=== PATIENT | female | born 1955 | race Caucasian/White ===

== ENCOUNTER 2019-01-24 22:15 | Emergency (ER) | payer OTHER ==
[~2019-01-24] VITALS: Ht 160 cm; Wt 81.6 kg
[2019-01-24 22:15] VITALS: BP 136/73
[~2019-01-24 22:15] MED LIST: ASPI-484 PO; ASPI-667 PO; CLOP75TA52 PO; DOCU-123 PO; DOXY25TA42 PO; INSU100V11 SQ; LISI-410 PO; METO25TA4 PO; METO50TA6 PO; NITR0.4T26 SL; OMEG300C PO; OMEG500C3 PO; SIMV40TA20 PO; TRAM50TA PO
--- NOTE | 2019-01-24 22:15 | NUR ---
ARRIVAL PATIENT PRESENTS VIA AMBULANCE WITH COMPLAINTS OF GENERALIZED BODY ACHES, BILATERAL SHOULDER PAIN, SOB WHEN LYING DOWN AND DIARRHEA FOR THE PAST 2 DAYS. PATIENT ALSO REPORTS THAT SHE THINKS SHE HAS A UTI AND IS DEHYDRATED. PATIENT HAS A GOODSON CATHETER IN PLACE THAT SHE HAD REPLACED ONE WEEK AGO. REPORTS SHE WAS RECENTLY DISCHARGED FROM THE INTERMEDIATE 01/10/19. EMS REPORT BS 456MG/DL. NO SIGNS OF DISTRESS NOTED. VSS. ZULEYKA MD NOTIFIED.
--- NOTE | 2019-01-24 22:50 | ER.PDOC ---
General Chief Complaint: Requesting Medical Care Stated Complaint: GENERALIZED PAIN,HYPERGLYCEMIA TRAVEL OUT OF US: No Time seen by MD: 22:50 Source: patient, family, EMS Exam Limitations: no limitations History of Present Illness Initial Comments 63 Y/O F WITH HX TO ED VIA EMS WITH MULTIPLE COMPLAINTS, BLOOD SUGAR UP, POSS UTI WITH CHRONIC GOODSON THAT WAS CHANGED OUT X 1 WEEK, UPPER BILAT SHOULDER PAIN WITH DEEP BREATH-- NOT LIKE PAST HEART PAIN AND DIARRHEA X 2 DAYS. NO CHEST PAIN, NO FEVER, NO AND PAIN, NO N/V, NO BLOOD IN STOOLS, NO COUGH, STATES FEELS DEHYDRATED, NO OTHER COMPLAINTS. PATIENT REQUESTS TORADOL--CAN TAKE, DOES NOT HAVE AN ALLERGY TO IBP. Timing/Duration: 24 hours Severity: moderate Associated Symptoms: weakness Allergies: Coded Allergies: codeine (Verified Allergy, Unknown, 10/18/15) ibuprofen (Verified Allergy, Unknown, 02/20/16) morphine (Verified Allergy, Unknown, 10/18/15) naproxen (Verified Allergy, Unknown, 10/18/15) Home Meds Active Scripts Nitroglycerin (NITROGLYCERIN) 0.4 Mg Tab.subl, 0.4 MG SL DAILY PRN for CHEST PAIN, #30 Prov:INDIA SOLIZ MD 11/12/15 Metoprolol Tartrate 25MG (LOPRESSER 25MG) 25 Mg Tablet, 50 MG PO DAILY for BLOOD PRESSURE, #30 TAB 4 Refills Prov:INDIA SOLIZ MD 11/12/15 Clopidogrel Bisulfate (PLAVIX) 75 Mg Tablet, 1 TAB PO DAILY, #30 TAB 4 Refills Prov:INDIA SOLIZ MD 11/12/15 Aspirin (ASPIR 81) 81 Mg Tablet.dr, 162 MG PO DAILY, #60 4 Refills Prov:INDIA SOLIZ MD 11/12/15 Metoprolol Tartrate 25MG (LOPRESSER 25MG) 25 Mg Tablet, 50 MG PO BID for HYPERTENSION, #60 TAB 4 Refills Prov:INDIA SOLIZ MD 10/22/15 Clopidogrel Bisulfate (PLAVIX) 75 Mg Tablet, 1 TAB PO DAILY, #30 TAB 4 Refills Prov:INDIA SOLIZ MD 10/22/15 Reported Medications Tramadol Hcl (TRAMADOL HCL) 50 Mg Tablet, 1 TAB PO TID for PAIN for 5 Days, TAB 02/21/16 Doxylamine Succinate (SLEEP AID) 25 Mg Tablet, 25 MG PO HS for INSOMNIA, TABLET 11/09/15 Aspirin (ASPIRIN) 81 Mg Tab.chew, 2 TAB PO DAILY, #30 TAB 11/09/15 Simvastatin (SIMVASTATIN) 40 Mg Tablet, 1 TAB PO HS, #90 TAB 1 Refill 11/09/15 [place]-3 Fatty Acids (FISH OIL) 300 Mg Capsule, 300 MG PO BID, CAPSULE 11/09/15 Docusate Sodium (COLACE) 100 Mg Capsule, 200 MG PO PRN PRN for CONSTIPATION, CAPSULE 11/09/15 [place]-3 Fatty Acids (FISH OIL) 500 Mg Capsule, 500 MG PO BID, CAPSULE 11/09/15 Lisinopril (LISINOPRIL) 20 Mg Tablet, 25 MG PO DAILY, TABLET 10/19/15 Simvastatin (SIMVASTATIN) 40 Mg Tablet, 1 TAB PO HS, #30 TAB 5 Refills 10/19/15 Insulin Regular, Human (NOVOLIN R) 100 Unit/1 Ml Vial, 10 UNITS SQ TID INJECT THE NUMBER OF UNITS OF INSULIN SPECIFIED BY PROVIDER 10/19/15 Past Medical History Medical History: coronary artery disease, cardiac problems, diabetes, high cholesterol, vascular disease Surgical History: cardiac cath, angioplasty, cholecystectomy, coronary bypass surgery, tubal, other Family History Significant Family History: no pertinent family hx Social History Smoking: non-smoker Alcohol Use: none Drug Use: none Reviewed Nursing Reviewed: Vital Signs, Abn. Noted, Nursing Assessment Review of Systems Constitutional: chills, malaise EENTM: no symptoms reported Respiratory: no symptoms reported Cardiovascular: no symptoms reported Gastrointestinal: diarrhea, other Genitourinary: no symptoms reported, other Musculoskeletal: no symptoms reported Skin: no symptoms reported Psychiatric/Neurological: no symptoms reported Hematologic/Lymphatic: no symptoms reported Immunological/Allergic: no symptoms reported Physical Exam General Appearance: No Apparent Distress, WD/WN EENT: eyes nml inspection, nml ENT inspection, pharynx nml Neck: Non-Tender, Full Range of Motion, Supple, Normal Inspection Respiratory: chest non-tender, lungs clear, normal breath sounds, no respiratory distress CVS: reg rate & rhythm, no murmur, no gallop, pulses nml, nml capillary refill Gastrointestinal: Normal Bowel Sounds, No Organomegaly, No Pulsatile Mass, Non Tender Back: Normal Inspection, No CVA Tenderness Extremities: Normal Range of Motion, Non-Tender, Other 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 GOODSON IN [place]. ABD --NON TENDER. Results/Orders Results/Orders Orders - DOMINGO GARDINER DO Cbc With Auto Diff (01/24/19 22:51) Comprehensive Metabolic Panel (01/24/19 22:51) Urinalysis (01/24/19 22:51) Creatine Kinase Mb (01/24/19:51) Creatine Kinase (01/24/19:51) Troponin I (01/24/19:51) Xr Chest 2v (01/24/19 22:51) Ekg-Routine (01/24/19 22:51) Lipase (01/24/19 22:51) 0.9 % Sodium Chloride (Ns 1000ml) (01/24/19 22:51) Saline Lock (01/24/19 22:51) 0.9 % Sodium Chloride (Ns 1000ml) (01/24/19 23:20) Insulin Regular, Human (Humulin R) (01/25/19 00:00) Urine Culture (01/24/19 23:25) Insulin Regular, Human (Humulin R) (01/24/19 23:45) Ceftriaxone Sodium (Rocephin) (01/25/19 00:00) 0.9 % Sodium Chloride (Ns 100ml) (01/24/19 23:52) Ceftriaxone Sodium (Rocephin) (01/24/19 23:52) Place Goodson Catheter (01/24/19 23:57) Ketorolac Tromethamine (Toradol) (01/25/19 00:00) Ketorolac Tromethamine (Toradol) (01/25/19 00:06) 0.9 % Sodium Chloride (Ns 1000ml) (01/25/19 00:23) 0.9 % Sodium Chloride (Ns 1000ml) (01/25/19 00:25) Blood Glucose Assessment (01/25/19 00:33) Vital Signs Date Time Temp Pulse Resp B/P (MAP) Pulse Ox O2 Delivery O2 Flow Rate FiO2 01/24/19 22:15 97.8 82 18 01/24/19 22:15 97.8 82 18 136/73 (94) 99 Room Air 01/24/19 22:15 97.8 82 18 99 Room Air Administered Medications Medications (Trade) Dose Ordered Sig/Yovanny Route PRN Reason Start Time Stop Time Status Last Admin Dose Admin Ceftriaxone Sodium 1 gm/ Sodium Chloride 100 ml @ 100 mls/hr STAT IV 01/25/19 00:00 02/24/19 00:00 01/24/19 23:59 100 MLS/HR Insulin Human Regular (Humulin R) 10 unit OT ONCE SQ 01/25/19 00:00 01/25/19 00:01 DC 01/24/19 23:59 10 UNIT Ketorolac Tromethamine (Toradol) 30 mg STAT PRN IV PAIN 4 - 6 01/25/19 00:00 02/24/19 00:00 01/25/19 00:21 30 MG Sodium Chloride 1,000 ml @ 0 mls/hr Q0M STAT IV 01/24/19 22:51 01/24/19 22:56 DC 01/24/19 23:24 1,000 MLS/HR Sodium Chloride 1,000 ml @ 0 mls/hr Q0M STAT IV 01/25/19 00:23 01/25/19 00:25 DC 01/25/19 00:29 1,000 MLS/HR Laboratory Tests Test 01/24/19 23:05 01/24/19 23:25 White Blood Count 8.3 10^3/uL (4.5-11.0) Red Blood Count 4.47 10^6/uL (4.00-5.20) Hemoglobin 12.8 g/dL (12.0-15.0) Hematocrit 36.8 % (36.0-46.0) Mean Corpuscular Volume 82.3 fL (78-100) Mean Corpuscular Hemoglobin 28.6 pg (26-34) Mean Corpuscular Hemoglobin Concent 34.8 g/dL (33-37) Red Cell Distribution Width 12.8 % (11.5-14.5) Platelet Count 252 10^3/uL (150-400) Mean Platelet Volume 9.4 fL (7.8-11.0) Neutrophils (%) (Auto) 46.9 % (41.0-85.0) Lymphocytes (%) (Auto) 42.4 % (24.0-44.0) Monocytes (%) (Auto) 7.8 % (5.0-12.0) Neutrophils # (Auto) 3.9 10^3/uL (1.8-7.7) Lymphocytes # (Auto) 3.5 10^3/uL (1.0-4.8) Monocytes # (Auto) 0.7 10^3/uL (0.3-0.8) Absolute Immature Granulocyte (auto 0.02 10^3 u/L (0-2) Immature Granulocytes % 0.20 % (0.00-0.50) Eosinophils % 2.2 % (0.0-5.0) Basophils % 0.5 % (0.0-0.2) H Basophils # 0.0 10^3/uL (0.0-0.1) Eosinophil Count 0.2 10^3/uL (0.0-0.2) Sodium Level 133 mmol/L (132-145) Potassium Level 3.9 mmol/L (3.6-5.2) Chloride Level 99.0 mmol/L (96-109) Carbon Dioxide Level 20.1 mmol/L (20.0-32) Anion Gap 17.8 Blood Urea Nitrogen 19 mg/dL (7-18) H Creatinine 1.19 mg/dL (0.59-1.40) Estimated GFR () 55.6 (>/=60) BUN/Creatinine Ratio 15.0 Glucose Level 428 mg/dL (70-110) *H Calcium Level 9.1 mg/dL (8.4-10.5) Total Bilirubin 0.6 mg/dL (0.2-1.0) Aspartate Amino Transferase (AST) 11 U/L (0-35) Alanine Aminotransferase (ALT) 20 U/L (12-78) Alkaline Phosphatase 108 U/L (50-136) Total Creatine Kinase 79 U/L (26-192) Creatine Kinase MB 1.5 ng/mL (0.5-3.6) Troponin I < 0.02 ng/mL (0.00-0.05) Total Protein 6.7 g/dL (6.4-8.2) Albumin 3.0 g/dL (3.4-5.0) L Globulin 3.7 Lipase 102 U/L (114-286) L Urine Collection Type VOID Urine Color YELLOW (YELLOW) Urine Appearance CLOUDY (CLEAR) H Urine Bilirubin NEGATIVE MG/DL (NEGATIVE) Urine Ketones NEGATIVE (NEGATIVE) Urine Specific [place] 1.010 (1.005-1.035) Urine pH 6 (5.0-6.0) Urine Protein 15 mg/dL (NEGATIVE) H Urine Urobilinogen NORMAL (NEGATIVE) Urine Nitrate NEGATIVE (NEGATIVE) Urine Leukocyte Esterase 100/ul 1+ (NEGATIVE) Urine Blood 150 3+ (NEGATIVE) H Urine RBC 10-25 RBC/HPF (NONE SEEN) H Urine WBC TNTC WBC/HPF (0-2) H Urine Squamous Epithelial Cells MANY #/HPF (FEW) Urine Bacteria FEW (NONE SEEN) H Urine Yeast MANY Urine Glucose 1000 (NEGATIVE) H Progress Progress AT 0000 FEELS MUCH BETTER, NO DIARRHEA SINCE THIS AM, NO ABD PAIN UNLESS PALP LOWER MID ABD, NO RLQ PAIN, PATIENT HAS NO OTHER COMPLAINTS. DIFF DX IN DETAIL, NEED TO DRINK MORE WATER, FOLLOW DIABETES MORE CLOSELY, AND FOLLOW UP WITH YOUR DR. PATIENT WANTS TO GO HOME. WILL REPLACE GOODSON. 0045- WANTS TO GO HOME, NO COMPLAINTS, WILL CHECK ANOTHER BLOOD GLUCOSE. EKG/XRAY/CT/US EKG: NSR EKG Comments: EKG--RATE--74, NO ACUTE CHANGES. XRAY: chest XRAY Comments: CHEST X-RAY---NEG STUDY. Course Duration or Total Time Spent w: 60 mins Vitals & review Data Vital Sign - Last 24 Hours 01/24/19 01/24/19 01/24/19 22:15 22:15 22:15 Temp 97.8 97.8 97.8 Pulse 82 82 82 Resp 18 18 18 B/P (MAP) 136/73 (94) Pulse Ox 99 99 O2 Delivery Room Air Room Air Laboratory Tests Test 01/24/19 23:05 01/24/19 23:25 White Blood Count 8.3 10^3/uL Red Blood Count 4.47 10^6/uL Hemoglobin 12.8 g/dL Hematocrit 36.8 % Mean Corpuscular Volume 82.3 fL Mean Corpuscular Hemoglobin 28.6 pg Mean Corpuscular Hemoglobin Concent 34.8 g/dL Red Cell Distribution Width 12.8 % Platelet Count 252 10^3/uL Mean Platelet Volume 9.4 fL Neutrophils (%) (Auto) 46.9 % Lymphocytes (%) (Auto) 42.4 % Monocytes (%) (Auto) 7.8 % Neutrophils # (Auto) 3.9 10^3/uL Lymphocytes # (Auto) 3.5 10^3/uL Monocytes # (Auto) 0.7 10^3/uL Absolute Immature Granulocyte (auto 0.02 10^3 u/L Immature Granulocytes % 0.20 % Eosinophils % 2.2 % Basophils % 0.5 % Basophils # 0.0 10^3/uL Eosinophil Count 0.2 10^3/uL Sodium Level 133 mmol/L Potassium Level 3.9 mmol/L Chloride Level 99.0 mmol/L Carbon Dioxide Level 20.1 mmol/L Anion Gap 17.8 Blood Urea Nitrogen 19 mg/dL Creatinine 1.19 mg/dL Estimated GFR () 55.6 BUN/Creatinine Ratio 15.0 Glucose Level 428 mg/dL Calcium Level 9.1 mg/dL Total Bilirubin 0.6 mg/dL Aspartate Amino Transf (AST/SGOT) 11 U/L Alanine Aminotransferase (ALT/SGPT) 20 U/L Alkaline Phosphatase 108 U/L Total Creatine Kinase 79 U/L Creatine Kinase MB 1.5 ng/mL Troponin I < 0.02 ng/mL Total Protein 6.7 g/dL Albumin 3.0 g/dL Globulin 3.7 Lipase 102 U/L Urine Collection Type VOID Urine Color YELLOW Urine Appearance CLOUDY Urine Bilirubin NEGATIVE MG/DL Urine Ketones NEGATIVE Urine Specific [place] 1.010 Urine pH 6 Urine Protein 15 mg/dL Urine Urobilinogen NORMAL Urine Nitrate NEGATIVE Urine Leukocyte Esterase 100/ul 1+ Urine Blood 150 3+ Urine RBC 10-25 RBC/HPF Urine WBC TNTC WBC/HPF Urine Squamous Epithelial Cells MANY #/HPF Urine Bacteria FEW Urine Yeast MANY Urine Glucose 1000 Current Medications Medications (Trade) Dose Ordered Sig/Yovanny PRN Reason Start Time Stop Time Status Last Admin Ceftriaxone Sodium 1 gm/ Sodium Chloride 100 ml @ 100 mls/hr STAT 01/25/19 00:00 02/24/19 00:00 01/24/19 23:59 Ketorolac Tromethamine (Toradol) 30 mg STAT PRN PAIN 4 - 6 01/25/19 00:00 02/24/19 00:00 01/25/19 00:21 Current Medications Medications (Trade) Dose Ordered Sig/Yovanny PRN Reason Start Time Stop Time Status Last Admin Ceftriaxone Sodium 1 gm/ Sodium Chloride 100 ml @ 100 mls/hr STAT 01/25/19 00:00 02/24/19 00:00 Sepsis Infection Criteria Pres: None Departure Time of Disposition: 00:42 Disposition: 01 HOME, SELF-CARE Impression: Primary Impression: Diabetes mellitus Additional Impressions: UTI (urinary tract infection) Dehydration Condition: Stable Patient Instructions: Diabetes Meal Planning Guide, Indwelling Urinary Catheter Care-Brief, - Urinary Tract Infection Referrals: NEGRITO GOODEN (PCP) PRIMARY CARE PROVIDER Additional Instructions: TO ED IF WORSE OR NO BETTER, DRINK MORE WATER, FOLLOW BLOOD SUGARS MORE CLOSELY, FOLLOW UP WITH YOUR DR AND FOLLOW UP WITH URINE CULTURE RESULTS. RX CIPRO 500MG 1 BID X 10 DAYS. Duration or Time Spent with Pa: 25 MIN Problem Qualifiers DOMINGO GARDINER DO Jan 24, 2019 22:50
[2019-01-24] MEDS ORDERED: NS 1000ML 1,000 ML IV STA (22:51)
[2019-01-24 23:00] VITALS: BP 134/67
--- NOTE | 2019-01-24 23:02 | PCM.EKG ---
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
[2019-01-24 23:12] LABS: BASOPHIL % 0.5 % (0.0-0.2); EOSINOPHIL # 0.2 10^3/uL (0.0-0.2); EOSINOPHIL % 2.2 % (0.0-5.0); HEMOGLOBIN 12.8 g/dL (12.0-15.0); LYMPHOCYTES # 3.5 10^3/uL (1.0-4.8); LYMPHOCYTES % 42.4 % (24.0-44.0); MEAN CELL HGB 28.6 pg (26-34); MEAN CELL HGB CONCENTRATION 34.8 g/dL (33-37); MEAN CORP VOLUME 82.3 fL (78-100); MEAN PLATELET VOLUME 9.4 fL (7.8-11.0); MONOCYTES # 0.7 10^3/uL (0.3-0.8); MONOCYTES % 7.8 % (5.0-12.0); NEUTROPHIL # 3.9 10^3/uL (1.8-7.7); NEUTROPHILS % 46.9 % (41.0-85.0); RED CELL DISTRIBUTION WIDTH 12.8 % (11.5-14.5); WHITE BLOOD CELL 8.3 10^3/uL (4.5-11.0)
[2019-01-24] MEDS ORDERED: NS 1000ML 1,000 ML ONE (23:20)
[2019-01-24 23:32] LABS: BILIRUBIN,URINE NEGATIVE (NEGATIVE); UROBILINOGEN,URINE NORMAL (NEGATIVE)
[2019-01-24 23:34] LABS: ALANINE AMINOTRANSFERASE(ML) 20 U/L (12-78); ALKALINE PHOSPHATASE 108 U/L (50-136); ASPARTATE AMINO TRANSFERASE 11 U/L (0-35); CALCIUM 9.1 mg/dL (8.4-10.5); CARBON DIOXIDE 20.1 mmol/L (20.0-32)
[2019-01-24 23:40] LABS: GLUCOSE 428 mg/dL (70-110)
[2019-01-24 23:41] LABS: APPEARANCE,URINE CLOUDY (CLEAR); UA COLOR YELLOW (YELLOW); YEAST,URINE MANY
[2019-01-24] MEDS ORDERED: HUMULIN R ONE (23:45)
[2019-01-24] MEDS ORDERED: NS 100ML 100 ML IV ONE (23:52)
[2019-01-24] MEDS ORDERED: ROCEPHIN ONE (23:52)
[2019-01-25] VITALS: BP 136/66
[2019-01-25] MEDS ORDERED: HUMULIN R SQ ONE
[2019-01-25] MEDS ORDERED: ROCEPHIN 1 GM in NS 100ML 100 ML IV SCH ×2
[2019-01-25] MEDS ORDERED: TORADOL IV PRN
[2019-01-25] MEDS ORDERED: TORADOL ONE (00:06)
--- NOTE | 2019-01-25 00:06 | DIREP ---
PROCEDURE:CHEST 2 VIEWS COMPARISON:[facility], CR, XRAY CHEST 2 VWS, 02/14/2016, 02:08 PM. INDICATIONS:UPPER BILAT SHOULDER PAIN WITH DEEP BREATH FINDINGS: LUNGS/PLEURA:Slightly decreased lung volumes. Mild crowding of the bronchovascular structures. No focal consolidation. No pneumothorax or pleural effusion. VASCULATURE:Normal. Unremarkable pulmonary vasculature. CARDIAC:Normal heart size. Post CABG changes with median sternotomy wires. MEDIASTINUM:Normal. No visible mass or adenopathy. BONES:Mild degenerative disc disease and spondylosis without visible acute abnormalities. OTHER:Negative. CONCLUSION:Low lung volumes. No focal airspace consolidation. No pneumothorax or pleural effusion. Dictated by: Gerardo Henderson MD on 01/25/2019 at 00:03 AM
[2019-01-25] MEDS ORDERED: NS 1000ML 1,000 ML IV STA (00:23)
[2019-01-25] MEDS ORDERED: NS 1000ML 1,000 ML ONE (00:25)
--- NOTE | 2019-01-25 00:25 | NUR ---
CATHETER GOODSON CATHETER REMOVED AND REPLACED WITH NEW GOODSON PER REQUEST OF MD ZULEYKA. PATIENT TOLERATED WELL.
[2019-01-25 01:00] VITALS: BP 128/72
--- NOTE | 2019-01-25 01:05 | NUR ---
IV IV DISCONTINUED WITH TIP INTACT. PRESSURE DRESSING APPLIED.
== END 2019-01-25 01:10 | disposition home or self-care (01) ==
LOC: ER 22:15 → EDBD 22:15 → ER 01-25 01:10
DX: E11.65 Type 2 diabetes mellitus with hyperglycemia (principal); E86.0 Dehydration; N39.0 Urinary tract infection, site not specified; E78.00 Pure hypercholesterolemia, unspecified; I25.10 Atherosclerotic heart disease of native coronary artery without angina pectoris; Z79.4 Long term (current) use of insulin; Z79.82 Long term (current) use of aspirin; Z79.899 Other long term (current) drug therapy; Z88.5 Allergy status to narcotic agent; Z88.6 Allergy status to analgesic agent; Z90.49 Acquired absence of other specified parts of digestive tract
CPT/HCPCS: 36415; 71046; 80053; 81000; 82550; 82553; 82948; 83690; 84484; 85025; 87086; 93005; 96361; 96365; 96372; 96375; 99285; J0696; J1815; J1885; J7030 ×2; J7050; 87077; 87186

== ENCOUNTER → 2019-01-26 | Outpatient (CLI) | payer OTHER ==
[2019-01-26 16:19] LABS: BASOPHIL % 0.4 % (0.0-0.2); EOSINOPHIL # 0.2 10^3/uL (0.0-0.2); EOSINOPHIL % 2.2 % (0.0-5.0); HEMOGLOBIN 13.3 g/dL (12.0-15.0); LYMPHOCYTES # 2.5 10^3/uL (1.0-4.8); LYMPHOCYTES % 33.6 % (24.0-44.0); MEAN CELL HGB 28.9 pg (26-34); MEAN CELL HGB CONCENTRATION 34.2 g/dL (33-37); MEAN CORP VOLUME 84.6 fL (78-100); MEAN PLATELET VOLUME 9.6 fL (7.8-11.0); MONOCYTES # 0.6 10^3/uL (0.3-0.8); MONOCYTES % 7.7 % (5.0-12.0); NEUTROPHIL # 4.1 10^3/uL (1.8-7.7); RED CELL DISTRIBUTION WIDTH 13.1 % (11.5-14.5); WHITE BLOOD CELL 7.3 10^3/uL (4.5-11.0)
[2019-01-26 16:43] LABS: ALANINE AMINOTRANSFERASE(ML) 25 U/L (12-78); ALKALINE PHOSPHATASE 102 U/L (50-136); ASPARTATE AMINO TRANSFERASE 20 U/L (0-35); CALCIUM 9.7 mg/dL (8.4-10.5); CARBON DIOXIDE 23.7 mmol/L (20.0-32); CHOLESTEROL 179 mg/dL (120-240); GLUCOSE 267 mg/dL (70-110); HDL CHOLESTEROL 33 mg/dL (32-96)
== END | disposition home or self-care (01) ==
LOC: NPLAB 15:30
PROVIDERS: ATTEND Nurse Practitioner Family
DX: E11.65 Type 2 diabetes mellitus with hyperglycemia (principal)
CPT/HCPCS: 80053; 80061; 84439; 84443; 85025

== ENCOUNTER → 2019-02-07 | Outpatient (CLI) | payer OTHER | END | disposition home or self-care (01) | LOC: NPLAB 16:21 | PROVIDERS: ATTEND Nurse Practitioner Family | DX: E11.65 Type 2 diabetes mellitus with hyperglycemia (principal) | CPT/HCPCS: 83036 ==

== ENCOUNTER 2019-03-24 02:30 | Emergency (ER) | payer OTHER ==
[~2019-03-24] VITALS: Ht 160 cm; Wt 81.6 kg
[2019-03-24 02:36] VITALS: BP 119/41
--- NOTE | 2019-03-24 02:47 | ER.PDOC ---
General Chief Complaint: Requesting Medical Care Stated Complaint: SOB Time seen by MD: 02:44 Source: patient Exam Limitations: no limitations History of Present Illness Initial Comments SOB worse when laying flat Timing/Duration: 1-3 hours Severity: moderate Activities at Onset: rest Prior Episodes/Possible Cause: no prior episodes Associated Symptoms: edema Allergies: Coded Allergies: codeine (Verified Allergy, Unknown, 10/18/15) ibuprofen (Verified Allergy, Unknown, 02/20/16) morphine (Verified Allergy, Unknown, 10/18/15) naproxen (Verified Allergy, Unknown, 10/18/15) Home Meds Active Scripts Nitroglycerin (NITROGLYCERIN) 0.4 Mg Tab.subl, 0.4 MG SL DAILY PRN for CHEST PAIN, #30 Prov:INDIA SOLIZ MD 11/12/15 Metoprolol Tartrate 25MG (LOPRESSER 25MG) 25 Mg Tablet, 50 MG PO DAILY for BLOOD PRESSURE, #30 TAB 4 Refills Prov:INDIA SOLIZ MD 11/12/15 Clopidogrel Bisulfate (PLAVIX) 75 Mg Tablet, 1 TAB PO DAILY, #30 TAB 4 Refills Prov:INDIA SOLIZ MD 11/12/15 Aspirin (ASPIR 81) 81 Mg Tablet.dr, 162 MG PO DAILY, #60 4 Refills Prov:INDIA SOLIZ MD 11/12/15 Metoprolol Tartrate 25MG (LOPRESSER 25MG) 25 Mg Tablet, 50 MG PO BID for HYPERTENSION, #60 TAB 4 Refills Prov:INDIA SOLIZ MD 10/22/15 Clopidogrel Bisulfate (PLAVIX) 75 Mg Tablet, 1 TAB PO DAILY, #30 TAB 4 Refills Prov:INDIA SOLIZ MD 10/22/15 Reported Medications Tramadol Hcl (TRAMADOL HCL) 50 Mg Tablet, 1 TAB PO TID for PAIN for 5 Days, TAB 02/21/16 Doxylamine Succinate (SLEEP AID) 25 Mg Tablet, 25 MG PO HS for INSOMNIA, TABLET 11/09/15 Aspirin (ASPIRIN) 81 Mg Tab.chew, 2 TAB PO DAILY, #30 TAB 11/09/15 Simvastatin (SIMVASTATIN) 40 Mg Tablet, 1 TAB PO HS, #90 TAB 1 Refill 11/09/15 [place]-3 Fatty Acids (FISH OIL) 300 Mg Capsule, 300 MG PO BID, CAPSULE 11/09/15 Docusate Sodium (COLACE) 100 Mg Capsule, 200 MG PO PRN PRN for CONSTIPATION, CAPSULE 11/09/15 [place]-3 Fatty Acids (FISH OIL) 500 Mg Capsule, 500 MG PO BID, CAPSULE 11/09/15 Lisinopril (LISINOPRIL) 20 Mg Tablet, 25 MG PO DAILY, TABLET 10/19/15 Simvastatin (SIMVASTATIN) 40 Mg Tablet, 1 TAB PO HS, #30 TAB 5 Refills 10/19/15 Insulin Regular, Human (NOVOLIN R) 100 Unit/1 Ml Vial, 10 UNITS SQ TID INJECT THE NUMBER OF UNITS OF INSULIN SPECIFIED BY PROVIDER 10/19/15 Past Medical History Medical History: coronary artery disease, cardiac problems, diabetes, high cholesterol, vascular disease Surgical History: cardiac cath, angioplasty, cholecystectomy, coronary bypass surgery, tubal, other Social History Drug Use: none Review of Systems Constitutional: no symptoms reported EENTM: no symptoms reported Respiratory: see HPI Cardiovascular: edema Gastrointestinal: no symptoms reported All Other Systems: Reviewed and Negative Physical Exam Neck: Non-Tender, Full Range of Motion, Supple, Normal Inspection Respiratory: chest non-tender, lungs clear, normal breath sounds, no respiratory distress Cardiovascular: Normal Peripheral Pulses, Regular Rate, Rhythm, No Edema, No JVD Gastrointestinal: Normal Bowel Sounds, No Organomegaly, No Pulsatile Mass, Other (obese) Extremities: Normal Range of Motion, Pedal Edema, Other (right BKA) 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 (03/24/19 02:42) Lactic Acid(Ml) (03/24/19 02:42) Influenza A&B (03/24/19 02:42) Cta Chest (03/24/19 04:07) Hydrocodone/Acetaminophen ([place] 5mg) (03/24/19 05:03) Hydrocodone/Acetaminophen ([place] 5mg) (03/24/19 05:02) Vital Signs Date Time Temp Pulse Resp B/P (MAP) Pulse Ox O2 Delivery O2 Flow Rate FiO2 03/24/19 04:50 61 20 145/66 (92) 97 Room Air 03/24/19 02:36 97.5 64 20 96 03/24/19 02:36 97.5 64 20 119/41 (67) 96 Room Air 03/24/19 02:36 97.5 64 20 Administered Medications Medications (Trade) Dose Ordered Sig/Yovanny Route PRN Reason Start Time Stop Time Status Last Admin Dose Admin Acetaminophen/ Hydrocodone Bitart ([place] 5mg) 1 ea STAT STAT PO 03/24/19 05:03 03/24/19 05:05 DC 03/24/19 05:06 1 EA Laboratory Tests Test 03/24/19 03:04 03/24/19 03:12 White Blood Count 7.7 10^3/uL (4.5-11.0) Red Blood Count 4.19 10^6/uL (4.00-5.20) Hemoglobin 12.1 g/dL (12.0-15.0) Hematocrit 37.0 % (36.0-46.0) Mean Corpuscular Volume 88.3 fL (78-100) Mean Corpuscular Hemoglobin 28.9 pg (26-34) Mean Corpuscular Hemoglobin Concent 32.7 g/dL (33-37) L Red Cell Distribution Width 14.6 % (11.5-14.5) H Platelet Count 276 10^3/uL (150-400) Mean Platelet Volume 9.8 fL (7.8-11.0) Neutrophils (%) (Auto) 55.9 % (41.0-85.0) Lymphocytes (%) (Auto) 32.3 % (24.0-44.0) Monocytes (%) (Auto) 8.5 % (5.0-12.0) Neutrophils # (Auto) 4.3 10^3/uL (1.8-7.7) Lymphocytes # (Auto) 2.5 10^3/uL (1.0-4.8) Monocytes # (Auto) 0.7 10^3/uL (0.3-0.8) Absolute Immature Granulocyte (auto 0.03 10^3 u/L (0-2) Absolute Eosinophils (auto) 0.2 10^3/uL (0.0-0.2) Immature Granulocytes % 0.40 % (0.00-0.50) Eosinophils % 2.5 % (0.0-5.0) Basophils % 0.4 % (0.0-0.2) H Basophils # 0.0 10^3/uL (0.0-0.1) Prothrombin Time 9.5 SEC (9.4-11.5) Prothrombin Time INR (Non-Therap) 0.9 Activated Partial Thromboplast Time 22.5 SEC (24.67-30.72) D-Dimer 0.59 mg/L (0.19-0.49) *H Sodium Level 136 mmol/L (132-145) Potassium Level 4.3 mmol/L (3.6-5.2) Chloride Level 103.0 mmol/L (96-109) Carbon Dioxide Level 27.2 mmol/L (20.0-32) Anion Gap 10.1 Blood Urea Nitrogen 20 mg/dL (7-18) H Creatinine 1.07 mg/dL (0.59-1.40) Estimated GFR () 62.9 (>/=60) Est GFR (CKD-EPI)(Non-Afr [place]) 52.0 (>/=60) BUN/Creatinine Ratio 18.0 Glucose Level 333 mg/dL (70-110) H Lactic Acid Level 1.2 mmol/L (0.50-2.00) Calcium Level 8.7 mg/dL (8.4-10.5) Total Bilirubin 0.5 mg/dL (0.2-1.0) Aspartate Amino Transferase (AST) 12 U/L (0-35) Alanine Aminotransferase (ALT) 18 U/L (12-78) Alkaline Phosphatase 83 U/L (50-136) Total Creatine Kinase 98 U/L (26-192) Troponin I < 0.02 ng/mL (0.00-0.05) Pro-B-Type Natriuretic Peptide 1869 pg/mL (0-125) H Total Protein 6.5 g/dL (6.4-8.2) Albumin 3.0 g/dL (3.4-5.0) L Globulin 3.5 Influenza Type A Antigen NEGATIVE (NEG) Influenza B Immunofluorescence NEGATIVE (NEG) Progress Progress CTA Chest: No evidence of pulmonary embolic disease. 2. The appearance raises question of congestive heart failure or volume overload. EKG/XRAY/CT/US EKG: NSR Departure Time of Disposition: 05:24 Disposition: 02 XFER SHT-TRM HOSP Impression: Primary Impression: CHF exacerbation Additional Impression: Volume overload Condition: Stable Referrals: NEGRITO GOODEN (PCP) PRIMARY CARE PROVIDER Comments Transfer to [facility] ED for Dr. Swanson Duration or Time Spent with Pa: 60 mins Problem Qualifiers Primary Impression: CHF exacerbation Heart failure type: unspecified Qualified Codes: I50.9 - Heart failure, unspecified Additional Impression: Volume overload Hypervolemia type: unspecified Qualified Codes: E87.70 - Fluid overload, unspecified HEATH MCKEON MD Mar 24, 2019 02:47
--- NOTE | 2019-03-24 02:57 | DIREP ---
PROCEDURE:CHEST 1 VIEW COMPARISON:[facility], CR, XRAY CHEST 2 VWS, 01/24/2019, 11:13 PM. INDICATIONS:SOB FINDINGS: LUNGS/PLEURA: Interstitial changes. Generalize haziness. No evidence of pleural effusion. VASCULATURE: Indistinct. CARDIAC: No cardiomegaly. ALIN/MEDIASTINUM:No visible mass or adenopathy. CABG. BONES: No acute changes. OTHER: No additional findings. CONCLUSION: 1. Interstitial changes. Generalize haziness. No focal consolidation. Dictated by: Faraz Dodge M.D. On 03/24/2019 at 02:53 AM
--- NOTE | 2019-03-24 03:00 | PCM.EKG ---
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1955 Requested By: HEATH MCKEON Order Number: [id number] Reading MD: Heath MCKEON Measurements Intervals Jbphh Rate: 63 P: 17 MD: 118 QRS: -28 QRSD: 110 T: 41 QT: 474 QTc: 486 Interpretive Statements Sinus rhythm Borderline short MD interval Borderline left axis deviation Probable anteroseptal infarct, old Compared to ECG 01/24/2019 23:01:02 Myocardial infarct finding now present Left bundle-branch block no longer present Left ventricular hypertrophy no longer present Electronically Signed On 03-27-2019 23:06:41 [employer] by Heath MCKEON Please click the below link to view image of tracing.
[2019-03-24 03:14] LABS: BASOPHIL % 0.4 % (0.0-0.2); EOSINOPHIL # 0.2 10^3/uL (0.0-0.2); EOSINOPHIL % 2.5 % (0.0-5.0); LYMPHOCYTES # 2.5 10^3/uL (1.0-4.8); LYMPHOCYTES % 32.3 % (24.0-44.0); MEAN CORP HGB 28.9 pg (26-34); MONOCYTES # 0.7 10^3/uL (0.3-0.8); MONOCYTES % 8.5 % (5.0-12.0); NEUTROPHIL # 4.3 10^3/uL (1.8-7.7); NEUTROPHILS % 55.9 % (41.0-85.0); RED CELL DISTRIBUTION WIDTH 14.6 % (11.5-14.5)
[2019-03-24 03:48] LABS: ALANINE AMINOTRANSFERASE(ML) 18 U/L (12-78); ALKALINE PHOSPHATASE 83 U/L (50-136); ASPARTATE AMINO TRANSFERASE 12 U/L (0-35); CALCIUM 8.7 mg/dL (8.4-10.5); CARBON DIOXIDE 27.2 mmol/L (20.0-32); GLUCOSE 333 mg/dL (70-110)
--- NOTE | 2019-03-24 04:02 | NUR ---
D DIMER DR JOE NOTIFIED OF ELEVATED D DIMER
[2019-03-24 04:50] VITALS: BP 145/66
[2019-03-24] MEDS ORDERED: NORCO 5MG PO ONE (05:02)
[2019-03-24] MEDS ORDERED: NORCO 5MG PO STA (05:03)
--- NOTE | 2019-03-24 05:16 | DIREP ---
PROCEDURE:CTA CHEST COMPARISON:None. INDICATIONS:SOB TECHNIQUE:Following the intravenous administration of contrast material, axial cuts were obtained through the chest. Multiplanar / 3-D - MIP reconstructions are provided. FINDINGS: PULMONARY ARTERIES: Patent. LUNGS/PLEURA: Motion artifact. Suggestion of interstitial infiltrates. Small bilateral pleural effusions. VASCULATURE: Unremarkable pulmonary vasculature. CARDIAC: No cardiac abnormality or cardiomegaly. THORACIC AORTA: Negative. MEDIASTINUM/ALIN: Negative. CHEST WALL: Negative. LIMITED ABDOMEN: Negative. BONES: Negative. OTHER: No additional findings. CONCLUSION: 1. No evidence of pulmonary embolic disease. 2. The appearance raises question of congestive heart failure or volume overload. Dictated by: Faraz Dodge M.D. On 03/24/2019 at 05:09 AM
[2019-03-24] MEDS ORDERED: LASIX IV STA (05:26)
[2019-03-24] MEDS ORDERED: LASIX ONE (05:29)
--- NOTE | 2019-03-24 05:32 | NUR ---
[facility] PATIENT REFUSED [facility]
[2019-03-24 05:39] VITALS: BP 133/57
[2019-03-24 05:54] VITALS: BP 122/72
--- NOTE | 2019-03-24 05:54 | NUR ---
REPORT REPORT GIVEN TO [facility]
== END 2019-03-24 06:04 | disposition short-term general hospital (02) ==
LOC: ER 02:30 → EDBD 02:30 → ER 06:04
DX: I50.9 Heart failure, unspecified (principal); E87.70 Fluid overload, unspecified; E11.9 Type 2 diabetes mellitus without complications; E78.00 Pure hypercholesterolemia, unspecified; I25.10 Atherosclerotic heart disease of native coronary artery without angina pectoris; Z79.4 Long term (current) use of insulin; Z79.82 Long term (current) use of aspirin; Z79.899 Other long term (current) drug therapy; Z88.5 Allergy status to narcotic agent; Z88.6 Allergy status to analgesic agent; Z90.49 Acquired absence of other specified parts of digestive tract
CPT/HCPCS: 36415; 71045; 71275; 80053; 82550; 83605; 83880; 84484; 85025; 85379; 85610; 85730; 87040 ×2; 87804 ×2; 93005; 96374; 99285; J1940; Q9965

== ENCOUNTER 2019-04-05 13:26 | Emergency (ER) | payer MEDICARE, OTHER ==
[~2019-04-05] VITALS: Ht 157.5 cm; Wt 87.1 kg
[2019-04-05 13:27] VITALS: BP 132/76
[2019-04-05] MEDS ORDERED: NITRO-BID TD STA (13:51)
--- NOTE | 2019-04-05 13:57 | PCM.EKG ---
[facility] Test Date: 2019-04-05 Test Time: 13:33:11 Pat Name: ERICKA LEDESMA Department: Room: Gender: F Regulation Supervisor: TB : [id number] Requested By: PRIMO BRANTLEY Order Number: [id number] Reading MD: Primo Brantley Measurements Intervals [place] Rate: 73 P: 6 RI: 126 QRS: -31 QRSD: 112 T: 37 QT: 431 QTc: 475 Interpretive Statements Sinus rhythm Incomplete left bundle branch block LVH with secondary repolarization abnormality Compared to ECG 03/24/2019 02:55:05 Left bundle-branch block now present Left ventricular hypertrophy now present Early repolarization now present Myocardial infarct finding no longer present Electronically Signed On 04-05-2019 15:13:22 ELECTRIC TRUCKER by Primo Brantley Please click the below link to view image of tracing.
--- NOTE | 2019-04-05 13:58 | ER.PDOC ---
General Chief Complaint: Chest Pain-Cardiac Nature Stated Complaint: CHEST PAIN Time seen by MD: 13:40 Source: patient History of Present Illness Timing/Duration: 1-3 hours Severity/Quality: moderate Radiation: no radiation Activities at Onset: rest Prior CP/Workup: Cardiac Cath, Heart Attack Nitro Today/Relief: No Nitro Taken Today Associated Symptoms: denies symptoms Allergies: Coded Allergies: codeine (Verified Allergy, Unknown, 10/18/15) ibuprofen (Verified Allergy, Unknown, 02/20/16) morphine (Verified Allergy, Unknown, 10/18/15) naproxen (Verified Allergy, Unknown, 10/18/15) Home Meds Active Scripts Clopidogrel Bisulfate (PLAVIX) 75 Mg Tablet, 1 TAB PO DAILY, #30 TAB 4 Refills Prov:INDIA SOLIZ MD 10/22/15 Reported Medications Simvastatin (SIMVASTATIN) 80 Mg Tablet, 80 MG PO DAILY24, TAB 04/05/19 Metoprolol Succinate (METOPROLOL SUCCINATE) 25 Mg Tab.er.24h, 25 MG PO DAILY24, TABLET 04/05/19 Pioglitazone Hcl (ACTOS) 30 Mg Tablet, 30 MG PO DAILY24, TAB 04/05/19 Insulin Detemir (Levemir Flextouch) 100 Unit/1 Ml Insuln.pen, 100 UNIT SQ AM, #20 UNIT 04/05/19 Donepezil Hcl (DONEPEZIL HCL) 10 Mg Tablet, 10 MG PO HS, TAB 04/05/19 Citalopram Hydrobromide (CITALOPRAM HBR) 40 Mg Tablet, 40 MG PO DAILY24, TAB 04/05/19 Losartan Potassium (LOSARTAN POTASSIUM) 25 Mg Tablet, 25 MG PO DAILY24, TAB 04/05/19 Trazodone Hcl (TRAZODONE HCL) 50 Mg Tablet, 50 MG PO HS, TAB 04/05/19 Gabapentin (GABAPENTIN) 300 Mg Capsule, 300 MG PO TID, CAPSULE 04/05/19 Sitagliptin Phosphate (JANUVIA) 100 Mg Tablet, 100 MG PO DAILY24, TAB 04/05/19 Furosemide (LASIX) 20 Mg Tablet, 10 MG PO DAILY24, TAB 04/05/19 Potassium Chloride (POTASSIUM CHLORIDE) 8 Meq Capsule.er, 8 MEQ PO DAILY24, CAP.SR 04/05/19 Buspirone Hcl (BUSPIRONE HCL) 10 Mg Tablet, 10 MG PO DAILY24, TAB 04/05/19 Metformin Hcl (METFORMIN HCL) 1,000 Mg Tablet, 1000 MG PO BID, TAB 04/05/19 Aspirin (ASPIRIN) 81 Mg Tab.chew, 2 TAB PO DAILY, #30 TAB 11/09/15 Discontinued Reported Medications Tramadol Hcl (TRAMADOL HCL) 50 Mg Tablet, 1 TAB PO TID for PAIN for 5 Days, TAB 02/21/16 Doxylamine Succinate (SLEEP AID) 25 Mg Tablet, 25 MG PO HS for INSOMNIA, TABLET 11/09/15 Simvastatin (SIMVASTATIN) 40 Mg Tablet, 1 TAB PO HS, #90 TAB 1 Refill 11/09/15 [place]-3 Fatty Acids (FISH OIL) 300 Mg Capsule, 300 MG PO BID, CAPSULE 11/09/15 Docusate Sodium (COLACE) 100 Mg Capsule, 200 MG PO PRN PRN for CONSTIPATION, CAPSULE 11/09/15 [place]-3 Fatty Acids (FISH OIL) 500 Mg Capsule, 500 MG PO BID, CAPSULE 11/09/15 Lisinopril (LISINOPRIL) 20 Mg Tablet, 25 MG PO DAILY, TABLET 10/19/15 Simvastatin (SIMVASTATIN) 40 Mg Tablet, 1 TAB PO HS, #30 TAB 5 Refills 10/19/15 Insulin Regular, Human (NOVOLIN R) 100 Unit/1 Ml Vial, 10 UNITS SQ TID INJECT THE NUMBER OF UNITS OF INSULIN SPECIFIED BY PROVIDER 10/19/15 Discontinued Scripts Nitroglycerin (NITROGLYCERIN) 0.4 Mg Tab.subl, 0.4 MG SL DAILY PRN for CHEST PAIN, #30 Prov:INDIA SOLIZ MD 11/12/15 Metoprolol Tartrate 25MG (LOPRESSER 25MG) 25 Mg Tablet, 50 MG PO DAILY for BLOOD PRESSURE, #30 TAB 4 Refills Prov:INDIA SOLIZ MD 11/12/15 Clopidogrel Bisulfate (PLAVIX) 75 Mg Tablet, 1 TAB PO DAILY, #30 TAB 4 Refills Prov:INDIA SOLIZ MD 11/12/15 Aspirin (ASPIR 81) 81 Mg Tablet.dr, 162 MG PO DAILY, #60 4 Refills Prov:INDIA SOLIZ MD 11/12/15 Metoprolol Tartrate 25MG (LOPRESSER 25MG) 25 Mg Tablet, 50 MG PO BID for HYPERTENSION, #60 TAB 4 Refills Prov:INDIA SOLIZ MD 10/22/15 Past Medical History Medical History: cardiac problems, diabetes, other Surgical History: cholecystectomy, , other Social History Alcohol Use: none Drug Use: none Constitutional: denies chills, denies fever EENTM: denies ear pain Respiratory: denies cough Cardiovascular: chest pain; denies irregular heart rate, denies palpitations Gastrointestinal: denies abdominal pain Genitourinary: denies pain Musculoskeletal: denies neck pain Skin: denies rash Psychiatric/Neurological: denies headache Physical Exam General Appearance: No Apparent Distress HEENT: PERRL/EOMI, Normal ENT Inspection Neck: Non-Tender Respiratory: lungs clear, normal breath sounds Cardiovascular: Normal Peripheral Pulses, Regular Rate, Rhythm Neurologic/Psychiatric: bombsight specialist II-XII NML as Tested, No Motor/Sensory Deficits, Alert Skin: Normal Color Results/Orders Results/Orders Vital Signs Date Time Temp Pulse Resp B/P (MAP) Pulse Ox O2 Delivery O2 Flow Rate FiO2 04/05/19 13:27 97.6 74 21 132/76 (94) Room Air 04/05/19 13:27 97.6 74 21 04/05/19 13:27 97.6 74 21 Progress Progress discussed case with chase from [facility] one call for admission to [facility] per patient request and per patient dry drug worker dr seo to see. discussed with hilton thakur accepting physician to the [facility]. [id number] Departure Time of Disposition: 16:03 Disposition: 02 XFER SHT-TRM HOSP Impression: Primary Impression: Chest pain Additional Impressions: Pleural effusion CHF (congestive heart failure) Condition: Improved Referrals: NEGRITO GOODEN (PCP) PRIMARY CARE PROVIDER Duration or Time Spent with Pa: 20 Problem Qualifiers EMILIANO MARIEE MD Apr 05, 2019 13:58
[2019-04-05] MEDS ORDERED: NITROSTAT SL ONE (14:00)
[2019-04-05] MEDS ORDERED: NITRO-BID TD ONE (14:02)
[2019-04-05 14:11] LABS: BASOPHIL % 0.5 % (0.0-0.2); EOSINOPHIL # 0.1 10^3/uL (0.0-0.2); EOSINOPHIL % 1.9 % (0.0-5.0); MEAN CORP HGB 29.6 pg (26-34); MONOCYTES # 0.6 10^3/uL (0.3-0.8); MONOCYTES % 7.8 % (5.0-12.0); NEUTROPHIL # 4.4 10^3/uL (1.8-7.7); NEUTROPHILS % 59.4 % (41.0-85.0); PLATELET COUNT 273 10^3/uL (150-400); RED CELL DISTRIBUTION WIDTH 14.7 % (11.5-14.5)
[2019-04-05 14:14] VITALS: BP 113/42
--- NOTE | 2019-04-05 14:30 | DIREP ---
PROCEDURE:CHEST 1 VIEW COMPARISON:[facility], CR, XRAY CHEST 2 VWS, 01/24/2019, 11:13 PM. [facility], CR, XRAY CHEST SINGLE VW, 03/24/2019, 02:29 AM. INDICATIONS:chest pain FINDINGS: LUNGS/PLEURA:There is a shallow inspiration with mild increased interstitial markings bilaterally with subsegmental atelectasis in the right base. No infiltrate or pleural effusion is seen. VASCULATURE:The pulmonary vascular markings are accentuated secondary to a shallow inspiration. CARDIAC:Previous sternotomy changes are seen with the heart size normal. MEDIASTINUM:Normal. No visible mass or adenopathy. BONES:Degenerative changes are seen in both acromioclavicular joints. OTHER:Negative. CONCLUSION:Previous sternotomy changes with a very shallow inspiration with mild increased interstitial markings bilaterally with linear subsegmental atelectasis in the right base without infiltrate. Dictated by: Adam Addison M.D. on 04/05/2019 at 02:27 PM
[2019-04-05 14:38] LABS: CARBON DIOXIDE 23.8 mmol/L (20.0-32)
[2019-04-05 14:39] LABS: ALANINE AMINOTRANSFERASE(ML) 15 U/L (12-78); ALKALINE PHOSPHATASE 75 U/L (50-136); ASPARTATE AMINO TRANSFERASE 14 U/L (0-35); CALCIUM 8.7 mg/dL (8.4-10.5); GLUCOSE 372 mg/dL (70-110)
[2019-04-05] MEDS ORDERED: NS 1000ML 1,000 ML IV ONE ×2 (14:57→15:00)
[2019-04-05] MEDS ORDERED: HUMULIN R IV ONE (15:00)
[2019-04-05] MEDS ORDERED: NS 1000ML 1,000 ML ONE ×2 (15:01→16:05)
[2019-04-05] MEDS ORDERED: HUMULIN R ONE (15:01)
--- NOTE | 2019-04-05 15:22 | NUR ---
CT PATIENT TO CT VIA STRETCHER.
[2019-04-05] MEDS ORDERED: LOSA25TA12 PO (15:49)
[2019-04-05] MEDS ORDERED: DONE10TA7 PO (15:49)
[2019-04-05] MEDS ORDERED: METF10007 PO (15:49)
[2019-04-05] MEDS ORDERED: FURO-81 PO (15:49)
[2019-04-05] MEDS ORDERED: TRAZ-163 PO (15:49)
[2019-04-05] MEDS ORDERED: GABA300C10 PO (15:49)
[2019-04-05] MEDS ORDERED: CITA40TA5 PO (15:49)
[2019-04-05] MEDS ORDERED: BUSP10TA PO (15:49)
[2019-04-05] MEDS ORDERED: POTA8CAP20 PO (15:49)
[2019-04-05] MEDS ORDERED: SITA100T PO (15:49)
[2019-04-05] MEDS ORDERED: PIOG30TA27 PO (15:49)
[2019-04-05] MEDS ORDERED: INSU100I28 SQ (15:49)
--- NOTE | 2019-04-05 15:49 | DIREP ---
PROCEDURE:CTA CHEST COMPARISON:[facility], CT, CTA CHEST, 03/24/2019, 04:20 AM. INDICATIONS:chest pain with elevated d dimer TECHNIQUE:Post contrast axial images through the chest with multiplanar MIP/3D reconstructions. FINDINGS: PULMONARY ARTERIES:No evidence for pulmonary embolism. There are respiratory motion artifact present at the lung bases obscuring segmental pulmonary artery evaluation in the lower lobes. LUNGS:Small to moderate bilateral pleural effusions with compressive atelectatic changes. Hazy ground-glass opacities scattered throughout the lungs may signify pneumonitis or atelectatic changes. CARDIAC:Post CABG changes. Dense coronary vascular calcifications. RV:LV ratio (norm <0.9): Not applicable in the absence of pulmonary embolism. THYROID:Normal. THORACIC AORTA:Normal. MEDIASTINUM:Normal. BONES:Normal. OTHER:No additional findings. CONCLUSION: 1. Evaluation of the lower lobe arteries segmental pulmonary artery is limited by respiratory motion artifact. The remainder of the pulmonary arteries are patent. 2. Small to moderate bilateral pleural effusions with scattered ground-glass opacities throughout the lungs that could represent pneumonitis or atelectatic change. Clinical correlation CHF is also recommended. 3. Dense coronary vascular calcifications with post CABG changes. Dictated by: Hussein Smith MD on 04/05/2019 at 03:39 PM
[2019-04-05] MEDS ORDERED: METO-236 PO (15:54)
[2019-04-05] MEDS ORDERED: LOVENOX SQ STA (15:59)
[2019-04-05 16:00] VITALS: BP 126/49
[2019-04-05] MEDS ORDERED: SIMV80TA18 PO (16:02)
[2019-04-05] MEDS ORDERED: LOVENOX SQ ONE (16:06)
[2019-04-05] MEDS ORDERED: TYLENOL PO STA (16:47)
[2019-04-05] MEDS ORDERED: TYLENOL PO ONE (16:48)
--- NOTE | 2019-04-05 17:11 | NUR ---
[facility] CALLED TO SAY THAT THEIR TRUCK IS AN HOUR OUT AND WILL BE CONTACTING JANNETTE TO SEE WHAT TO DO. [facility] TRUCK WILL TAKE JUST LONG.
--- NOTE | 2019-04-05 17:36 | NUR ---
Patient's pain level greatly improved following administration of 1000 mg acetaminophen. Patient smiled when questioned and stated "Much better."
--- NOTE | 2019-04-05 18:25 | NUR ---
UPDATE PATIENT CONTINUES TO WAIT FOR EMS TO BECOME AVAILABLE FOR TRANSFER TO [facility].
== END 2019-04-05 19:20 | disposition short-term general hospital (02) ==
LOC: ER 13:26 → EDBD 13:26 → ER 19:20
DX: I50.9 Heart failure, unspecified (principal); J90 Pleural effusion, not elsewhere classified; E11.9 Type 2 diabetes mellitus without complications; Z79.82 Long term (current) use of aspirin; Z79.4 Long term (current) use of insulin; Z79.899 Other long term (current) drug therapy; Z88.5 Allergy status to narcotic agent; Z88.6 Allergy status to analgesic agent
CPT/HCPCS: 36415; 71045; 71275; 80053; 82550; 82553; 82803; 82948; 83880; 84484; 85025; 85379; 85610; 85730; 93005; 96372; 96374; 99285; J1650; J1815; J7030 ×2; Q9965

== ENCOUNTER → 2019-04-25 | Outpatient (CLI) | payer MEDICARE, MEDICAID ==
[~2019-04-25] MED LIST changes: +BUSP10TA PO; +CITA40TA5 PO; +DONE10TA7 PO; +FURO-81 PO; +GABA300C10 PO; +INSU100I28 SQ; +LOSA25TA12 PO; +METF10007 PO; +METO-236 PO; +PIOG30TA27 PO; +POTA8CAP20 PO; +SIMV80TA18 PO; +SITA100T PO; +TRAZ-163 PO
--- NOTE | 2019-04-25 12:45 | DIREP ---
PROCEDURE:C-Spine 5 views (AP/lateral/oblique/dens) TECHNIQUE:AP, lateral, bilateral oblique and dens views of the cervical spine are provided. COMPARISON:None. INDICATIONS:M47.892 SPONDYLOSIS, M54.2 CERVICALGIA, G89.4 CHRONIC PAIN SYDROME FINDINGS: ALIGNMENT:Normal. VERTEBRAE:Normal. DISK SPACES:There is mild degenerative loss of disk height at the C4-5 level. There is moderate degenerative loss of disk height at the C5-6 level. There is mild degenerative loss of disk height at the C6-7 level. CERVICAL RIBS:None. JOINTS:At C4-5, there is right-sided moderate uncovertebral joint hypertrophy, resulting in moderate bony neural foraminal stenosis. At C5-6, there is bilateral moderate uncovertebral joint hypertrophy, resulting in moderate bony neural foraminal stenosis. OTHER: Sternotomy wires and coronary ostial markers in keeping with CABG. CONCLUSION: Mild C4-5 degenerative disk disease. Moderate C5-6 degenerative disk disease. Mild C6-7 degenerative disk disease. Moderate right-sided C4-5 neural foraminal stenosis due to moderate uncovertebral joint hypertrophy. Moderate bilateral C5-6 neural foraminal stenosis due to moderate uncovertebral joint hypertrophy. Dictated by: Alan White Jr. on 04/25/2019 at 12:40 PM
--- NOTE | 2019-04-25 12:55 | DIREP ---
PROCEDURE:XRAY SPINE LUMBAR MIN 4 VWS COMPARISON:None. INDICATIONS:M47.897 SPONDYLOSIS, M54.5 LUMBAGO, G89.4 CHRONIC PAIN SYNDROME TECHNIQUE:AP, lateral, bilateral oblique, lateral flexion/extension, and coned down lateral views of the lumbar spine are provided. FINDINGS: ALIGNMENT:Normal. VERTEBRAE:No pars defects. No visible compression fracture of the lumbar vertebra. Small endplate osteophytes upper lumbar spine. Bones are osteopenic. Mild facet arthropathy lower lumbar spine. DISK SPACES:Mild height loss at L5-S1, T12-L1. SPONDYLOLISTHESIS:No abnormal motion with flexion or extension. SACROILIAC JOINTS:Normal. OTHER:Status post cholecystectomy. CONCLUSION:Mild degenerative changes. No abnormal motion with flexion or extension. Dictated by: Seferino Sanchez M.D. on 04/25/2019 at 12:48 PM
--- NOTE | 2019-04-25 13:24 | DIREP ---
PROCEDURE:CT CERVICAL SPINE WITHOUT CONTRAST TECHNIQUE:Axial cuts were obtained through the cervical spine. The images were viewed at bone settings. Sagittal reconstructions are provided. COMPARISON:[facility], , XRAY SPINE CERVICAL COMP, 04/25/2019, 10:59 AM. INDICATIONS:M54.2 CERVICALGIA, M47.892 SPONDYLOSIS, G89.4 CHRONIC PAIN SYNDROME FINDINGS: ALIGNMENT:Normal. VERTEBRAE:Normal. PARASPINAL AREA:Normal. OTHER:No additional findings. CERVICAL DISC LEVELS C2-C3:Normal. C3-C4:Normal. C4-C5:There is moderate left neural foraminal stenosis secondary to uncovertebral hypertrophy. There is moderate loss of intervertebral disc height. Mild disc bulge with traction osteophytosis C5-C6:There is mild left neural foraminal stenosis secondary to uncovertebral hypertrophy. There is moderate loss of intervertebral disc height. C6-C7:There is mild loss of intervertebral disc height. C7-T1:Normal. CONCLUSION: 1. Multilevel degenerative disc disease as above. There is left foraminal 4/5 and 5-6 Dictated by: Alan White Jr. on 04/25/2019 at 01:20 PM
--- NOTE | 2019-04-25 13:44 | DIREP ---
PROCEDURE: CT SPINE LUMBAR W/O TECHNIQUE:Axial cuts were obtained through the lumbar spine. The images were viewed at bone settings. COMPARISON:None. INDICATIONS:M54.5 LUMBAGO, M47.892 SPONDYLOSIS, G89.4 CHRONIC PAIN SYNDROME FINDINGS: ALIGNMENT:Normal. VERTEBRAE:Normal. PARASPINAL AREA:Normal. OTHER:No additional findings. LUMBAR DISC LEVELS T12-L1:Normal. L1-L2:Normal. L2-L3:Normal. L3-L4:Normal. L4-L5:Normal. L5-S1: There is mild loss of disc height. Vacuum disc phenomenon. Diffuse disc bulge with a left lateral prominence. There is encroachment upon the left lateral recess and moderate left neural foraminal narrowing. No canal stenosis CONCLUSION: 1. Degenerative change at L5/S1 with encroachment upon the left lateral recess and left foraminal narrowing. Dictated by: Alan White Jr. on 04/25/2019 at 01:22 PM
== END | disposition home or self-care (01) ==
LOC: CT 10:25
PROVIDERS: ATTEND Internal Medicine Cardiovascular Disease
DX: M50.323 Other cervical disc degeneration at C6-C7 level (principal); M50.221 Other cervical disc displacement at C4-C5 level; M50.222 Other cervical disc displacement at C5-C6 level; M47.816 Spondylosis without myelopathy or radiculopathy, lumbar region; M47.892 Other spondylosis, cervical region; M47.897 Other spondylosis, lumbosacral region; M48.061 Spinal stenosis, lumbar region without neurogenic claudication; M48.02 Spinal stenosis, cervical region
CPT/HCPCS: 72050; 72110; 72125; 72131

== ENCOUNTER 2019-06-03 10:23 | Emergency (ER) | payer MEDICARE, MEDICAID ==
[~2019-06-03] VITALS: Ht 160 cm; Wt 86.6 kg
--- NOTE | 2019-06-03 10:23 | NUR ---
[facility] PT ARRIVED VIA EMS WITH C/O SHOULDER AND BLE CRAMPING/ PAIN. PT REPORTS HAVING RUNNY NOSE. PT STATES SHE IS CONFUSED. PT CURRENTLY HAS WOUND TO TOES ON LLE AND STATES SHE IS BEING SEEN BY HOME HEALTH FOR WOUND TREATMENT. PT IS A GOOD HISTORIAN OF EVENTS OVER THE LAST FEW DAYS, HER MEDICAL AND MEDICATION HISOTRY. PT DOES NOT RECALL THE NAME OF THE ANTIBIOTICS SHE IS CURRENTLY TAKING FOR HER INFECTION ON HER TOES. BEDSIDE MONITORS APPLIED. VITAL SIGNS STABLE. BED IN LOW LOCKED POSITION WITH SIDERAILS X2. CALL LIGHT WITHIN REACH. ALL STAFF ENTERING ROOM ENCOURAGED TO USE MASK D/T RESPIRATORY COMPLAINT.
[2019-06-03 10:24] VITALS: BP 148/72
[2019-06-03] MEDS ORDERED: NS IV SCH ×2 (10:30→11:00)
[2019-06-03] MEDS ORDERED: HUMULIN R IV ONE ×2 (10:30→12:00)
[2019-06-03 10:32] VITALS: BP 148/72
--- NOTE | 2019-06-03 10:38 | ER.PDOC ---
General Chief Complaint: General Complaint Stated Complaint: SHOULDER PAIN TRAVEL OUT OF US: No Time seen by MD: 10:10 Source: patient, EMS History of Present Illness Initial Comments patient is here for multiple complaints, she states she has cramping in her hamstrings and shoulders, she has a runny nose with mild cough and body aches, she also has a complaint of her toes on the left foot, she states that she has an ulcer on the left foot toe and that she has home health care come over for 3 days a week to be dressed, she also states he blood sugar is high and that she did not take her insulin today. no vomiting/diarrhea/chest pain or abd pain. no travel or exposure to coronavirus. Timing/Duration: unsure Severity: mild Modifying Factors: improves with movement Allergies: Coded Allergies: codeine (Verified Allergy, Unknown, 10/18/15) ibuprofen (Verified Allergy, Unknown, 02/20/16) morphine (Verified Allergy, Unknown, 10/18/15) naproxen (Verified Allergy, Unknown, 10/18/15) Home Meds Active Scripts Clopidogrel Bisulfate (PLAVIX) 75 Mg Tablet, 1 TAB PO DAILY, #30 TAB 4 Refills Prov:INDIA SOLIZ MD 10/22/15 Reported Medications Simvastatin (SIMVASTATIN) 80 Mg Tablet, 80 MG PO DAILY24, TAB 04/05/19 Metoprolol Succinate (METOPROLOL SUCCINATE) 25 Mg Tab.er.24h, 25 MG PO DAILY24, TABLET 04/05/19 Pioglitazone Hcl (ACTOS) 30 Mg Tablet, 30 MG PO DAILY24, TAB 04/05/19 Insulin Detemir (Levemir Flextouch) 100 Unit/1 Ml Insuln.pen, 100 UNIT SQ AM, #20 UNIT 04/05/19 Donepezil Hcl (DONEPEZIL HCL) 10 Mg Tablet, 10 MG PO HS, TAB 04/05/19 Citalopram Hydrobromide (CITALOPRAM HBR) 40 Mg Tablet, 40 MG PO DAILY24, TAB 04/05/19 Losartan Potassium (LOSARTAN POTASSIUM) 25 Mg Tablet, 25 MG PO DAILY24, TAB 04/05/19 Trazodone Hcl (TRAZODONE HCL) 50 Mg Tablet, 50 MG PO HS, TAB 04/05/19 Gabapentin (GABAPENTIN) 300 Mg Capsule, 300 MG PO TID, CAPSULE 04/05/19 Sitagliptin Phosphate (JANUVIA) 100 Mg Tablet, 100 MG PO DAILY24, TAB 04/05/19 Furosemide (LASIX) 20 Mg Tablet, 10 MG PO DAILY24, TAB 04/05/19 Potassium Chloride (POTASSIUM CHLORIDE) 8 Meq Capsule.er, 8 MEQ PO DAILY24, CAP.SR 04/05/19 Buspirone Hcl (BUSPIRONE HCL) 10 Mg Tablet, 10 MG PO DAILY24, TAB 04/05/19 Metformin Hcl (METFORMIN HCL) 1,000 Mg Tablet, 1000 MG PO BID, TAB 04/05/19 Aspirin (ASPIRIN) 81 Mg Tab.chew, 2 TAB PO DAILY, #30 TAB 11/09/15 Past Medical History Medical History: congestive heart failure, diabetes, hypertension Surgical History: cholecystectomy, , other Social History Alcohol Use: none Drug Use: none Review of Systems Constitutional: denies chills, denies fever EENTM: nose congestion Respiratory: denies cough Cardiovascular: denies chest pain Gastrointestinal: denies abdominal pain, denies diarrhea, denies vomiting Genitourinary: denies pain Musculoskeletal: muscle pain; denies muscle stiffness, denies neck pain Skin: denies change in color, denies rash Psychiatric/Neurological: denies headache Hematologic/Lymphatic: denies blood clots Physical Exam General Appearance: No Apparent Distress, WD/WN EENT: eyes nml inspection, nml ENT inspection Neck: Lymphadenopathy (R), Lymphadenopathy (L) Respiratory: chest non-tender, lungs clear CVS: reg rate & rhythm Gastrointestinal: Non Tender Back: Normal Inspection, No CVA Tenderness Extremities: Normal Range of Motion, Non-Tender Neurologic/Psychiatric: tie in hand II-XII NML as Tested, No Motor/Sensory Deficits, Alert, Normal Mood/Affect, Oriented x 3 Skin: Other Comments r aka well healed, left 3rd and 4th toes distally have what appears to be chronic ulceration, no erythema patient still has cap refill to the toes and can move toes, no pallor or crepitus, the 4th toes has a sterile dressing in place that was placed by her home care nurse per patient no midline neck or back pain over the spinous processes. Results/Orders Results/Orders Orders - EMILIANO MARIEE MD Cbc With Auto Diff (06/03/19 10:23) Comprehensive Metabolic Panel (06/03/19 10:23) Creatine Kinase (06/03/19 10:23) Creatine Kinase Mb (06/03/19 10:23) Troponin I (06/03/19 10:23) Ekg-Routine (06/03/19 10:23) Saline Lock (06/03/19 10:23) Blood Culture (06/03/19 10:23) Urinalysis (06/03/19 10:23) Venous Blood Gas (06/03/19 10:23) Influenza A&B (06/03/19 10:23) Acetone,Serum (Ml) (06/03/19 10:23) Lactic Acid(Ml) (06/03/19 10:23) Xr Chest 1v (06/03/19 10:23) Xr Foot Lt (06/03/19 10:23) 0.9 % Sodium Chloride (Ns 1000ml) (06/03/19 10:30) Insulin Regular, Human (Humulin R) (06/03/19 10:30) 0.9 % Sodium Chloride (Ns 1000ml) (06/03/19 11:00) Insulin Regular, Human (Humulin R) (06/03/19 12:00) Urine Culture (06/03/19 12:01) Vital Signs Date Time Temp Pulse Resp B/P (MAP) Pulse Ox O2 Delivery O2 Flow Rate FiO2 06/03/19 12:15 98.0 74 18 121/80 (94) 100 Room Air 06/03/19 11:30 97.8 78 18 129/60 (83) 100 Room Air 06/03/19 10:32 97.8 70 18 148/72 (97) 100 Room Air 06/03/19 10:24 97.8 70 18 100 06/03/19 10:24 97.8 70 18 Administered Medications Medications (Trade) Dose Ordered Sig/Yovanny Route PRN Reason Start Time Stop Time Status Last Admin Dose Admin Insulin Human Regular (Humulin R) 10 unit OT ONCE IV 06/03/19 10:30 06/03/19 10:31 UNV 06/03/19 10:40 10 UNIT Insulin Human Regular (Humulin R) 10 unit OT ONCE IV 06/03/19 12:00 06/03/19 12:02 DC 06/03/19 12:01 10 UNIT Sodium Chloride 2,400 ml @ 1,200 mls/hr OT IV 06/03/19 11:00 07/03/19 10:59 UNV 06/03/19 10:46 1,200 MLS/HR Laboratory Tests Test 06/03/19 10:35 06/03/19 11:56 White Blood Count 8.7 10^3/uL (4.5-11.0) Red Blood Count 4.76 10^6/uL (4.00-5.20) Hemoglobin 13.4 g/dL (12.0-15.0) Hematocrit 39.6 % (36.0-46.0) Mean Corpuscular Volume 83.2 fL (78-100) Mean Corpuscular Hemoglobin 28.2 pg (26-34) Mean Corpuscular Hemoglobin Concent 33.8 g/dL (33-36.5) Red Cell Distribution Width 13.3 % (11.5-14.5) Platelet Count 310 10^3/uL (150-400) Mean Platelet Volume 9.1 fL (7.8-11.0) Neutrophils (%) (Auto) 67.5 % (41.0-85.0) Lymphocytes (%) (Auto) 25.0 % (24.0-44.0) Monocytes (%) (Auto) 5.5 % (5.0-12.0) Neutrophils # (Auto) 5.9 10^3/uL (1.8-7.7) Lymphocytes # (Auto) 2.17 10^3/uL1 (1.0-4.8) Monocytes # (Auto) 0.5 10^3/uL (0.3-0.8) Absolute Immature Granulocyte (auto 0.05 10^3 u/L (0-2) Absolute Eosinophils (auto) 0.1 10^3/uL (0.0-0.2) Immature Granulocytes % 0.60 % (0.00-0.50) H Eosinophils % 0.8 % (0.0-5.0) Basophils % 0.6 % (0.0-0.2) H Basophils # 0.1 10^3/uL (0.0-0.1) POC Blood Gas Site VBG O2 Saturation 56.6 (70-75) L Shin Test N/A Venous Blood pH 7.492 (7.32-7.43) H Venous Blood pCO2 at Patient Temp 25.1 MMHG (41-51) L POC Venous pO2 27.1 MMHG (30-50) L Venous Blood Base Excess -2.7 Venous Blood Temperature 37 Blood Gas Total Hemoglobin 14.8 % (12.0-16.0) Deoxyhemoglobin 42.6 % (0.0-5.0) H Carboxyhemoglobin 1.5 % (0.0-3.9) Methemoglobin 0.3 % (0.00-5.0) Total Oxygen Concentration 11.5 % (13.5-17.5) L FiO2 21 % (20-101) Sodium Level 134 mmol/L (132-145) Potassium Level 4.5 mmol/L (3.6-5.2) Chloride Level 101.0 mmol/L (96-109) Carbon Dioxide Level 21.6 mmol/L (20.0-32) Total Carbon Dioxide 19.6 mmol/L (23-27) L Bicarbonate 18.8 mmol/L (24-28) L Anion Gap 15.9 Blood Urea Nitrogen 29 mg/dL (7-18) H Creatinine 1.26 mg/dL (0.59-1.40) Estimated GFR () 51.9 (>/=60) Est GFR (CKD-EPI)(Non-Afr [place]) 42.9 (>/=60) BUN/Creatinine Ratio 23.0 Glucose Level 413 mg/dL (70-110) *H Lactic Acid Level 2.1 mmol/L (0.5-1.9) *H Calcium Level 9.7 mg/dL (8.4-10.5) Total Bilirubin 0.6 mg/dL (0.2-1.0) Aspartate Amino Transferase (AST) 18 U/L (0-35) Alanine Aminotransferase (ALT) 19 U/L (12-78) Alkaline Phosphatase 107 U/L (50-136) Total Creatine Kinase 85 U/L (26-192) Creatine Kinase MB 1.6 ng/mL (0.5-3.6) Troponin I < 0.02 ng/mL (0.00-0.05) Total Protein 7.7 g/dL (6.4-8.2) Albumin 3.5 g/dL (3.4-5.0) Globulin 4.2 Acetone, Semi-Quantitative NEGATIVE Influenza Type A Antigen NEGATIVE (NEG) Influenza B Immunofluorescence NEGATIVE (NEG) Urine Collection Type UNKNOWN Urine Color YELLOW (YELLOW) Urine Appearance SLIGHTLY HAZY (CLEAR) H Urine Bilirubin NEGATIVE MG/DL (NEGATIVE) Urine Ketones 15 mg/dL (NEGATIVE) H Urine Specific [place] 1.005 (1.005-1.035) Urine pH 7 (5.0-6.0) Urine Protein NEGATIVE (NEGATIVE) Urine Urobilinogen NORMAL (NEGATIVE) Urine Nitrate NEGATIVE (NEGATIVE) Urine Leukocyte Esterase NEGATIVE (NEGATIVE) Urine Blood NEGATIVE (NEGATIVE) Urine RBC NONE SEEN RBC/HPF (NONE Urine WBC 0-2 WBC/HPF (0-2) Urine Squamous Epithelial Cells FEW #/HPF (FEW) Urine Bacteria NONE SEEN (NONE SEEN) Urine Yeast MODERATE Urine Glucose 1000 (NEGATIVE) H Progress Progress lactate 2.1 most likely due to hyperglycemia as normal wbc count and no signs of sirs on vitals or other labs, no definite infection at this time on exam or imaging Departure Time of Disposition: 12:19 Disposition: 01 HOME, SELF-CARE Impression: Primary Impression: Hyperglycemia Additional Impressions: Muscle cramps Diabetic ulcer of foot associated with diabetes mellitus due to underlying condition, limited to breakdown of skin Condition: Improved Patient Instructions: Hyperglycemia, Muscle Cramps, Pressure Ulcer Referrals: NEGRITO GOODEN (PCP) PRIMARY CARE PROVIDER Additional Instructions: return for any worsening symptoms, see your doctor for adjustment of you medications, keep a log of you glucose readings and take to your doctor for adjustment of your medication. Duration or Time Spent with Pa: 20 Problem Qualifiers EMILIANO MARIEE MD Jun 03, 2019 10:38
--- NOTE | 2019-06-03 10:43 | PCM.EKG ---
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[place] : [id number] Requested By: PRIMO BRANTLEY Order Number: [id number] Reading MD: Primo Brantley Measurements Intervals [place] Rate: 68 P: 36 NV: 129 QRS: -40 QRSD: 109 T: -23 QT: 420 QTc: 447 Interpretive Statements Sinus rhythm Left axis deviation Nonspecific T abnormalities, inferior leads Compared to ECG 04/05/2019 13:33:11 Left-axis deviation now present T-wave abnormality now present Left bundle-branch block no longer present Left ventricular hypertrophy no longer present Early repolarization no longer present no acute st changes as same as previous ecg from 04-05-2019 Electronically Signed On 06-03-2019 11:08:07 CDT by Primo Brantley Please click the below link to view image of tracing.
[2019-06-03 10:49] LABS: BASOPHIL # 0.1 10^3/uL (0.0-0.1); BASOPHIL % 0.6 % (0.0-0.2); EOSINOPHIL # 0.1 10^3/uL (0.0-0.2); EOSINOPHIL % 0.8 % (0.0-5.0); LYMPHOCYTES # 2.17 10^3/uL1 (1.0-4.8); MEAN CORP HGB 28.2 pg (26-34); MONOCYTES # 0.5 10^3/uL (0.3-0.8); MONOCYTES % 5.5 % (5.0-12.0); NEUTROPHIL # 5.9 10^3/uL (1.8-7.7); NEUTROPHILS % 67.5 % (41.0-85.0); RED CELL DISTRIBUTION WIDTH 13.3 % (11.5-14.5)
--- NOTE | 2019-06-03 11:01 | DIREP ---
PROCEDURE:CHEST 1 VIEW COMPARISON:[facility], CR, XRAY CHEST SINGLE VW, 04/05/2019, 02:01 PM. INDICATIONS:shoulder pain bilat FINDINGS: LUNGS/PLEURA:No significant pulmonary parenchymal abnormalities. No effusions. VASCULATURE:Normal. Unremarkable pulmonary vasculature. CARDIAC:Normal. No cardiac silhouette abnormality or cardiomegaly. Status post CABG MEDIASTINUM:Normal. No visible mass or adenopathy. BONES:Normal. No fracture or visible bony lesion. Sternotomy. Degenerative changes of the shoulders OTHER:Negative. CONCLUSION:No acute process, no significant interval change Dictated by: Alan Connolly MD on 06/03/2019 at 10:57 AM
--- NOTE | 2019-06-03 11:05 | DIREP ---
PROCEDURE:XRAY FOOT MIN 3 VWS-LT COMPARISON:None. INDICATIONS:diabetic with chronic foot uncler FINDINGS: BONES:Degenerative changes, osteophyte especially along the inferior calcaneus. No fracture. No lytic process is identified. JOINTS:Normal. SOFT TISSUES:Normal. OTHER:No additional findings. CONCLUSION:No lytic process to indicate osteomyelitis is identified. Degenerative changes. Dictated by: Alan Connolly MD on 06/03/2019 at 11:00 AM
[2019-06-03 11:12] LABS: ALANINE AMINOTRANSFERASE(ML) 19 U/L (12-78); ALKALINE PHOSPHATASE 107 U/L (50-136); ASPARTATE AMINO TRANSFERASE 18 U/L (0-35); CALCIUM 9.7 mg/dL (8.4-10.5); CARBON DIOXIDE 21.6 mmol/L (20.0-32)
[2019-06-03 11:13] LABS: GLUCOSE 413 mg/dL (70-110)
[2019-06-03 11:30] VITALS: BP 129/60
[2019-06-03 12:05] LABS: BILIRUBIN,URINE NEGATIVE (NEGATIVE); UROBILINOGEN,URINE NORMAL (NEGATIVE)
[2019-06-03 12:13] LABS: APPEARANCE,URINE SLIGHTLY HAZY (CLEAR); UA COLOR YELLOW (YELLOW)
[2019-06-03 12:14] LABS: YEAST,URINE MODERATE
[2019-06-03 12:15] VITALS: BP 121/80
--- NOTE | 2019-06-03 12:39 | NUR ---
BEDSIDE BS 300 Addendum: 06/03/19 at 1239 by MIKEY BEDSIDE BS 300. REPORTED TO DR MARIEE.
[2019-06-03 12:46] VITALS: BP 121/80
== END 2019-06-03 12:46 | disposition home or self-care (01) ==
LOC: EDBD 10:23 → ER 10:23
DX: E11.65 Type 2 diabetes mellitus with hyperglycemia (principal); E11.621 Type 2 diabetes mellitus with foot ulcer; L97.529 Non-pressure chronic ulcer of other part of left foot with unspecified severity; I11.0 Hypertensive heart disease with heart failure; I50.9 Heart failure, unspecified; Z79.4 Long term (current) use of insulin; Z79.82 Long term (current) use of aspirin; Z79.899 Other long term (current) drug therapy; Z88.5 Allergy status to narcotic agent; Z88.6 Allergy status to analgesic agent; Z90.49 Acquired absence of other specified parts of digestive tract
CPT/HCPCS: 36415; 71045; 80053; 81000; 82010; 82550; 82553; 82803; 82948; 83605; 84484; 85025; 87040; 87086; 87804; 93005; 96361; 96374; 96376; 99285; 73630-LT